=== PATIENT | male | born 1955 | race Caucasian/White ===

== ENCOUNTER 2021-01-22 09:17 | Outpatient (REF) | payer BC, SELFPAY ==
[2021-01-22 19:36] LABS: ALT 28 U/L (16-63); AST 21 U/L (15-37); Albumin 3.8 g/dL (3.4-5.0); Alkaline Phosphatase 68 U/L (46-116); BUN 17 mg/dL (7-18); Bilirubin, Total 0.8 mg/dL (0.2-1.0); CREATININE 1.2 mg/dL (0.70-1.30); Chloride 105 mmol/L (98-107); Glucose 132 mg/dL (74-106); Potassium 4.4 mmol/L (3.5-5.1); Sodium 141 mmol/L (136-145); Total Protein 6.6 g/dL (6.4-8.2)
[2021-01-25 14:15] LABS: PSA, Screening 0.6 ng/mL (0.0-4.5)
[2021-01-29 18:05] LABS: Testosterone, Free 64.8 ng/dL (3.67-13.9); Testosterone, Total 1580 ng/dL (240-950)
== END 2021-01-22 09:18 | disposition home or self-care (01) ==
LOC: NCHCN 09:17
PROVIDERS: Visit Provider Physician Assistant
DX: E78.1 Pure hyperglyceridemia (principal); N40.0 Benign prostatic hyperplasia without lower urinary tract symptoms; Z12.5 Encounter for screening for malignant neoplasm of prostate
CPT/HCPCS: 80053; 84153; 84402; 84403

== ENCOUNTER → 2025-02-06 12:58 | Outpatient (BNVA) | payer MEDICARE, BC, SELFPAY | PROVIDERS: PCP Internal Medicine; Referring Provider Internal Medicine; Visit Provider Podiatrist | DX: M79.672 Pain in left foot (principal); L60.0 Ingrowing nail; M67.02 Short Achilles tendon (acquired), left ankle; M77.42 Metatarsalgia, left foot | CPT/HCPCS: 99203 ==